=== PATIENT | male | born 1990 | race Caucasian/White ===

== ENCOUNTER 2016-09-26 12:48 | Emergency (ER) | payer SELFPAY ==
[2016-09-26 12:53] VITALS: BP 147/91; BMI 34.2
--- NOTE | 2016-09-26 13:12 | DR.GENAD ---
HPI - PCP Primary Care Physician: MARLEN Dunlap HPI Comment HPI Comment: Patient reports back pain which started today. - Complaint/Symptoms Chief Complaint Doctors Comments: Back pain Chief Complaint:: STARTED LEFT BACK PAIN THIS MORNING AND HAS MOVED TO THE LOWER LEFT ABD. AREA - Nurses notes reviewed Nurses Notes Review: Yes - Source History Provided: Patient - Mode of Arrival Mode of Arrival: Ambulatory - Timing Onset of Chief Complaint: 09/26/16 PMH - PMH Past Medical History: No Past Surgical History: No - Family History History of Family Medical Conditions: Yes Family Medical History: Diabetes Mellitus, Cancer, Coronary Artery Disease, Heart Failure, Hypertension - Social History Does patient currently use any type of tobacco product: Yes Have you used tobacco products in the last 12 months: Yes Type of Tobacco Use: Cigarettes Does any household member use tobacco: No Alcohol Use: None Do you use any recreational Drugs:: No Lives With: Family Lives Where: Home - infectious screening In the last 2 months have you had wt loss of >10#?: NO Have you had fever, night sweats or hemotysis?: No Have you traveled outside the country in the last 6 months?: No Isolation: Standard ROS - Review of Systems Constitutional: No Symptoms Reported Eyes: No Symptoms Reported ENTM: No Symptoms Reported Respiratoy: No Symptoms Reported Cardiovascular: No Symptoms Reported Gastrointestinal/Abdominal: No Symptoms Reported Genitourinary: No Symptoms Reported Neurological: No Symptoms Reported Musculoskeletal: Back Pain, Left Integumentary: No Symptoms Reported Hematologic/Lymphatic: No Symptoms Reported Endocrine: No Symptoms Reported Psychiatric: No Symptoms Reported All Other Systems: Reviewed and Negative PE - Vital Signs Vitals: Pulse Rate 52 Respiratory Rate 20 Blood Pressure 147/91 O2 Sat by Pulse Oximetry 97 - General Limitations: No Limitations General Appearance: Alert, In No Apparent Distress - Head Head Exam: Normal Inspection - Eyes Eye exam: Normal Appearance, PERRL, EOMI - ENT ENT Exam: Normal Exam External Ear Exam: Normal External Inspection TM/Canal Exam: Bilateral Normal Nose Exam: Normal Nose Exam Mouth Exam: Normal Inspection Throat Exam: Normal Inspection - Neck Neck Exam: Normal Inspection, Full ROM - Chest Chest Inspection: Normal Inspection - Respiratory Respiratory Exam: Normal Lung Sounds Bilat Respiratory Exam: Bilateral Clear to Auscultation - Cardiovascular Cardiovascular Exam: Regular Rate, Normal Rhythm - Abdominal Exam Abdominal Exam: Normal Inspection, Normal Bowel Sounds, Soft - Extremities Extremities Exam: Normal Inspection, Full ROM - Back Back Exam: Normal Inspection, (L) CVA Tenderness - Neurologic Neurological Exam: Alert, Oriented X3, CN II-XII Intact - Psychiatric Psychiatric Exam: Normal Affect, Normal Mood - Skin Skin Exam: Warm, Dry, Intact, Normal Color Course - Reevaluation 1st: Improved - Education/Counseling Education/Counseling: Patient, Family Educated On: Treatment, Diagnosis, Needs for Follow Up ROR - Labs Reviewed Laboratory Results Reviewed?: Yes Laboratory: Specimen Type Clean catch urine 09/26/16 13:23 Urine Color Staci (YELLOW) 09/26/16 13:23 Urine Appearance Turbid (CLEAR) 09/26/16 13:23 Urine pH 5.0 (5.0 - 8.0) 09/26/16 13:23 Ur Specific [place] 1.030 (1.000-1.030) 09/26/16 13:23 Urine Protein 2+ (NEGATIVE) 09/26/16 13:23 Urine Glucose (UA) Negative (NEGATIVE) 09/26/16 13:23 Urine Ketones 1+ (NEGATIVE) 09/26/16 13:23 Urine Occult Blood 5+ (NEGATIVE) 09/26/16 13:23 Urine Nitrite Positive (NEGATIVE) 09/26/16 13:23 Urine Bilirubin 1+ (NEGATIVE) 09/26/16 13:23 Urine Urobilinogen 2+ (NORMAL) 09/26/16 13:23 Ur Leukocyte Esterase 1+ (NEGATIVE) 09/26/16 13:23 Urine RBC 10-15 /HPF (NEGATIVE) 09/26/16 13:23 Urine WBC 0-3 /HPF (NEGATIVE) 09/26/16 13:23 Ur Squamous Epith Cells Rare /HPF (NEGATIVE) 09/26/16 13:23 Amorphous Sediment 4+ /HPF (NEGATIVE) 09/26/16 13:23 Urine Bacteria Negative /HPF (NEGATIVE) 09/26/16 13:23 Ur Culture Indicated? Yes/culture set up 09/26/16 13:23 - XRAY XRAY Interpreted by: Radiologist XRAY Findings: 2 mm stone L UVJ - Diagnosis Discharge Problem: Urinary tract infection, acute, Left flank pain, Renal colic on left side Urolithiasis Qualifiers: Urinary calculus location: ureter Qualified Code(s): N20.1 - Calculus of ureter - Discharge Plan Disposition: 01 HOME, SELF-CARE Condition: Stable Prescriptions: Nitrofurantoin Macro [Macrobid Cap 100 mg Ext Rel] 100 mg PO BID #14 cap Tamsulosin HCl [Flomax] 0.4 mg PO DAILY #10 cap Tramadol HCl 50 mg PO Q8H PRN #12 tab PRN Reason: Pain - Follow ups/Referrals Follow ups/Referrals: NFD,None [Primary Care Provider] - 3 days - Instructions Instructions: Urinary Tract Infection, Renal Colic, [id number], Flank Pain, Kidney Stones Additional Instructions: Follow up with PCP. Increase fluid intake
[2016-09-26] MEDS ORDERED: TORADOL 30 MG VIAL IVP ONE (13:14)
[2016-09-26] MEDS ORDERED: NS 1000 ML 1,000 ML IV ONE (13:14)
[2016-09-26] MEDS ORDERED: NS 1000 ML 1,000 ML ONE (13:24)
[2016-09-26] MEDS ORDERED: TORADOL 30 MG VIAL ONE (13:24)
[2016-09-26 13:55] LABS: BILIRUBIN,URINE 1+ (NEGATIVE); BLOOD/HEMOGLOBIN,URINE 5+ (NEGATIVE); GLUCOSE, URINE NEGATIVE (NEGATIVE); KETONES,URINE 1+ (NEGATIVE); LEUKOCYTE ESTERASE ,URINE 1+ (NEGATIVE); NITRITES,URINE POSITIVE (NEGATIVE); PROTEIN,URINE 2+ (NEGATIVE); UROBILINOGEN,URINE 2+ (NORMAL)
--- NOTE | 2016-09-26 13:55 | CT ---
CT abdomen and pelvis without contrast Indication: Lower abdominal pain, left flank pain, history of kidney stones Technique: CT images of the abdomen and pelvis were obtained without contrast per protocol. Automati c exposure control was utilized. Findings: The lung bases are clear. No aggressive osseous lesion. Within noncontrast limitations, the liver, gallbladder, spleen, stomach, duodenum, pancreas, and adr enals are unremarkable, aside from a small hiatal hernia of the stomach. There is mild left-sided hy droureteronephrosis with associated perinephric stranding secondary to a 2 mm calculus at the ureter ovesicular junction. No nephrolithiasis or right sided hydronephrosis identified. No significant bow el thickening or dilatation of the lower GI tract identified. Normal appearing appendix. The urinary bladder, prostate, and rectum are unremarkable. No free fluid or adenopathy identified. Impression: Mild left-sided hydroureteronephrosis secondary to an obstructing 2 mm calculus at the UVJ. Small hiatal hernia Reported By:
[2016-09-26] MEDS ORDERED: DEMEROL INJ IVP ONE (14:02)
[2016-09-26] MEDS ORDERED: PHENERGAN INJ 25 MG IVP ONE (14:02)
[2016-09-26] MEDS ORDERED: PHENERGAN INJ 25 MG ONE (14:06)
[2016-09-26] MEDS ORDERED: DEMEROL INJ ONE (14:06)
[2016-09-26] MEDS ORDERED: FLOMAX ONE (14:14)
[2016-09-26 14:15] LABS: APPEARANCE,URINE TURBID (CLEAR); COLOR,URINE AMBER (YELLOW)
[2016-09-26 14:16] LABS: AMORPHOUS SEDIMENT,UR 4+ /HPF (NEGATIVE); BACTERIA,URINE NEGATIVE /HPF (NEGATIVE); SQUAMOUS EPITHELIAL CELL,UR RARE /HPF (NEGATIVE)
[2016-09-27] MEDS ORDERED: FLOMAX PO ONE (14:04)
== END 2016-09-26 14:42 | disposition home or self-care (01) ==
LOC: ER 12:48
DX: N20.1 Calculus of ureter (principal); N23 Unspecified renal colic; N39.0 Urinary tract infection, site not specified; R10.84 Generalized abdominal pain; K44.9 Diaphragmatic hernia without obstruction or gangrene; N13.39 Other hydronephrosis
CPT/HCPCS: 74176; 81001; 87086; 96365; 96374; 96375; 99283; A4222; J1885; J2175; J2550

== ENCOUNTER 2016-09-30 05:44 | Emergency (ER) | payer SELFPAY ==
[2016-09-30 05:49] VITALS: BP 167/86; BMI 33.0
--- NOTE | 2016-09-30 06:00 | DR.HEADACH ---
HPI - Time Seen Time seen: 05:58 - Primary Care Physician Primary Care Physician: alejandro - HPI Comment HPI Comment: Throbbing occipital headache for 3 -4 days alternating between frontal and occipital areas. Admits to taking five trammadols w/o relief. Denies nausea ,vomitng or photophobia. Denies fever. Patient had CT abdomen/ pelvis on 09/26/16 for abdominal pain, diagnosed with mild left sided hydroureteronephrosis secondary to an obstructing 2mm calculus at the ureterovesicular junction. - Complaint/Symptoms Chief Complaint:: headache for approx. 3/4 days. denies n/v/d. no sensitivity to light or sound. dizzines and blurred vision with headache Self Treatment fo Chief Complaint: tramadol times 5 approx. 45 mins ago - Source History Provided: Patient, Significant Other - Mode of Arrival Mode of Arrival: Ambulatory - Timing Onset of Chief Complaint: 09/27/16 - Location Headache Location: Generalized, Frontal, Occipital - Severity Headache Severity: Severe, Worst Headache of Life PMH - PMH Past Medical History: Yes Past Medical History: Kidney Stones Past Surgical History: No - Family History History of Family Medical Conditions: Yes Family Medical History: Diabetes Mellitus, Cancer, Coronary Artery Disease, Heart Failure, Hypertension - Social History Type of Tobacco Use: Cigarettes Alcohol Use: None Do you use any recreational Drugs:: No Lives With: Spouse Lives Where: Home - infectious screening In the last 2 months have you had wt loss of >10#?: NO Have you traveled outside the country in the last 6 months?: No Isolation: Standard ROS - Review of Systems Constitutional: No Symptoms Reported Eyes: No Symptoms Reported. negative: Blurred Vision, Photophobia, Diplopia ENTM: No Symptoms Reported Respiratoy: No Symptoms Reported Cardiovascular: No Symptoms Reported Gastrointestinal/Abdominal: No Symptoms Reported Genitourinary: No Symptoms Reported Neurological: See HPI, Headache Musculoskeletal: No Symptoms Reported Integumentary: No Symptoms Reported Hematologic/Lymphatic: No Symptoms Reported Endocrine: No Symptoms Reported Psychiatric: No Symptoms Reported All Other Systems: Reviewed and Negative PE - Vital Signs Vitals: Temperature 98.6 F Pulse Rate 62 Respiratory Rate 24 Blood Pressure 167/86 O2 Sat by Pulse Oximetry 100 - General Limitations: No Limitations General Appearance: Alert - Head Head Exam: Normal Inspection - Eyes Eye exam: Normal Appearance, PERRL, EOMI Eyelids: Normal Inspection: Bilateral Pupils: Regular, Round: Bilateral Sclera/Conjunctival: Normal Inspection: Bilateral - ENT ENT Exam: Normal Exam, Normal Oropharynx External Ear Exam: Normal External Inspection TM/Canal Exam: Bilateral Normal Nose Exam: Normal Nose Exam, Nasal Deviation Mouth Exam: Trismus Throat Exam: Normal Inspection - Neck Neck Exam: Normal Inspection - Chest Chest Inspection: Normal Inspection - Respiratory Respiratory Exam: Normal Lung Sounds Bilat Respiratory Exam: Bilateral Clear to Auscultation - Cardiovascular Cardiovascular Exam: Regular Rate, Normal Rhythm - Abdominal Exam Abdominal Exam: Normal Inspection Abdominal Tenderness: negative: RUQ, RLQ, LUQ, LLQ, Epigastrium, Suprapubic, Diffuse, Mild, Moderate, Severe, Other - Extremities Extremities Exam: Normal Inspection, Full ROM - Back Back Exam: Normal Inspection, Full ROM - Neurologic Neurological Exam: Alert, Oriented X3, CN II-XII Intact - Psychiatric Psychiatric Exam: Normal Affect - Skin Skin Exam: Warm, Dry, Intact Course - Treatment Treatment: Minimum improvement headache. CT scan of brain was negative; patient was given choice of having a lumbar puncture done to r/o subarachnoid hemorrhage but declined permit. - Reevaluation 1st: Improved ROR - Other Results Comments: Patient initially refused LP; agreed, s/p three attempts obtained blood in tube one resulting in a bloody tap. Needle withdrawn. - XRAY XRAY Interpreted by: Radiologist (CT Brain:No acute intraparenchymal hemorrhage or mass can be identified. No extra=axial fluid collcections are seen. No alteration in the attenuation of the brain parenchyma can be identified to suggest acute or subacute ischemic change. The ventricular system is symmetric and nondilated. The extracranial structures are grossly unremarkable, the calvarium is intact. Impression: No significant intracranial abnormality identified.) - Diagnosis Discharge Problem: Headache Qualifiers: Headache type: other vascular headache Qualified Code(s): G44.1 - Vascular headache, not elsewhere classified - Discharge Plan Condition: Stable - Follow ups/Referrals Follow ups/Referrals: NFD,None [Primary Care Provider] - 3 days - Instructions
[2016-09-30] MEDS ORDERED: DEMEROL INJ IVP ONE ×2 (06:04→06:30)
[2016-09-30] MEDS ORDERED: PHENERGAN INJ 25 MG IV ONE ×2 (06:04→06:31)
[2016-09-30] MEDS ORDERED: PHENERGAN INJ 25 MG ONE ×2 (06:05→06:33)
[2016-09-30] MEDS ORDERED: DEMEROL INJ ONE ×2 (06:06→06:34)
--- NOTE | 2016-09-30 06:34 | CT ---
HISTORY: Severe headache Study: CT brain without contrast Comparison: none Technique: Multiple axial images of the brain were obtained from the skull base to the vertex without administr ation of IV contrast. Coronal and sagittal reformats were performed. Dose reduction procedures were used with MA/kv adjusted for body size. Findings: No acute intraparenchymal hemorrhage or mass can be identified. No extra-axial fluid collections ar e seen. No alteration in the attenuation of the brain parenchyma can be identified to suggest acute or subacute ischemic change. The ventricular system is symmetric and nondilated. The extracranial structures are grossly unremarkable. the calvarium is intact. IMPRESSION: No significant intracranial abnormality identified Reported By:
[2016-09-30] MEDS ORDERED: XYLOCAINE 1 % (PLAIN) ONE (07:25)
[2016-09-30] MEDS ORDERED: DILAUDID IM ONE (07:41)
[2016-09-30] MEDS ORDERED: DILAUDID ONE (07:42)
== END 2016-09-30 08:11 | disposition home or self-care (01) ==
LOC: ER 05:44
DX: G44.1 Vascular headache, not elsewhere classified (principal)
CPT/HCPCS: 70450; 96365; 96372; 96374; 96375; 99283; A4222; J2001; J2175; J2550